=== PATIENT | male | born 1970 | race African-American/Black ===

== ENCOUNTER 2018-02-08 08:15 | Outpatient (CLI) | payer OTHER ==
[~2018-02-08 08:15] MED LIST: AMOX1TAB12 PO; PERMETHRIN60 GM TP
== END 2018-02-08 08:26 | disposition home or self-care (01) ==
LOC: SONOGRAMA 08:15 → MAMO-SONO 09:45
DX: R79.89 Other specified abnormal findings of blood chemistry (principal)

== ENCOUNTER → 2018-02-08 09:02 | Outpatient (CLI) | payer OTHER | END | disposition home or self-care (01) | LOC: LAB 09:02 | DX: R10.9 Unspecified abdominal pain (principal) ==